=== PATIENT | male | born 2000 | race Caucasian/White ===

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

== ENCOUNTER → 2025-01-06 | Outpatient (RCR) | LOC: M EMPSKH 12-21 11:10 | PROVIDERS: ATTEND Family Medicine | DX: Z20.828 Contact with and (suspected) exposure to other viral communicable diseases (principal) ==